=== PATIENT | male | born 2005 | race Caucasian/White ===

== ENCOUNTER 2025-10-31 17:23 | Emergency (ER) | payer OTHER, SELFPAY ==
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
[2025-10-31 17:43] VITALS: BP 117/77; PULSE 89; RESP 16; TEMP 37.5; O2SAT 100
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
== END 2025-10-31 18:51 | disposition home or self-care (01) ==
PROVIDERS: Emergency Provider Registered Nurse
DX: S43.402A Unspecified sprain of left shoulder joint, initial encounter (principal); S16.1XXA Strain of muscle, fascia and tendon at neck level, initial encounter; V43.52XA Car driver injured in collision with other type car in traffic accident, initial encounter
CPT/HCPCS: 72040; 73030; 99204; G0463